=== PATIENT | male | born 1985 | race Two or more races ===

== ENCOUNTER 2022-02-09 10:23 | Emergency (ER) | payer MEDICAID, OTHER ==
[~2022-02-09] VITALS: Ht 180.3 cm; Wt 129.3 kg
[2022-02-09 11:14] VITALS: BP 148/90
== END 2022-02-09 11:58 | disposition home or self-care (01) ==
LOC: ER 10:23
DX: S46.911A Strain of unspecified muscle, fascia and tendon at shoulder and upper arm level, right arm, initial encounter (principal); F17.210 Nicotine dependence, cigarettes, uncomplicated; W23.0XXA Caught, crushed, jammed, or pinched between moving objects, initial encounter; Y93.89 Activity, other specified; Y92.89 Other specified places as the place of occurrence of the external cause; Y99.8 Other external cause status
CPT/HCPCS: 73030